=== PATIENT | male | born 1980 | race Caucasian/White ===

== ENCOUNTER 2023-06-19 23:48 | Inpatient (IN) | payer SELFPAY ==
[2023-06-20] MEDS ORDERED: LIDOCAINE 1%/EPI 1:100000 (50 ML MULTI DOSE VIAL) ONE (00:46)
[2023-06-20] MEDS ORDERED: SULFAMETHOXAZOLE/TRIMETHOPRIM 800MG/160MG D.S. TABLET PO ONE (00:47)
[2023-06-20] MEDS ORDERED: morphine CARPU-JECT 4 MG/1 ML DISP.SYRIN IVPUSH ONE (01:31)
[2023-06-20 01:34] LABS: BASO % 0.8 % (0-2.0); EOS % 2.6 % (0-4.5); HEMATOCRIT 41.5 % (35.4-49); HEMOGLOBIN 14.3 GM/dL (11.7-16.9); LYMPH % 28.1 % (8-40); MCH 30.5 pg (25.7-33.7); MCHC 34.5 g/dl (32.0-35.9); MEAN CELL VOLUME 88.4 fl (80-96); MEAN PLT VOLUME 8.1 fl (7.5-11.1); MONO % 7.2 % (3.8-10.2); NEUT % 61.3 % (42.8-82.8); PLATELET COUNT 279 10^3/uL (134-434); RDW 13.3 % (11.9-15.9); WHITE BLOOD COUNT 8.8 K/mm3 (4.0-10.0)
[2023-06-20 01:41] LABS: INR 1.03 (0.83-1.09)
[2023-06-20] MEDS ORDERED: LIDOCAINE HCL 1%, 10 MG/ML (50 mL VIAL) SQ ONE (01:45)
[2023-06-20] MEDS ORDERED: DALBAVANCIN HCL 1,500 MG in DEXTROSE 5%-WATER - 500 ML IVPB ONE (02:00)
[2023-06-20 02:02] LABS: CHLORIDE 106 mmol/L (98-107); SODIUM 138 mmol/L (136-145)
[2023-06-20 02:04] LABS: CALCIUM 8.6 mg/dL (8.5-10.1); CO2 29 mmol/L (21-32); GLUCOSE,RANDOM 93 mg/dL (74-106)
[2023-06-20 02:05] LABS: BLOOD UREA NITROGEN 11.3 mg/dL (7-18)
[2023-06-20 02:09] LABS: BILIRUBIN,TOTAL 0.3 mg/dL (0.2-1); TOT PROT 8.4 g/dl (6.4-8.2)
[2023-06-20 02:10] LABS: ALK PHOS 54 U/L (45-117)
[2023-06-20 02:14] LABS: ANION GAP 2 MMOL/L (8-16); POTASSIUM 8.4 mmol/L (3.5-5.1); SGOT/AST 139 U/L (15-37); SGPT/ALT 96 U/L (13-61)
[2023-06-20 03:18] LABS: BASO % 0.3 % (0-2.0); EOS % 2.9 % (0-4.5); HEMATOCRIT 40.8 % (35.4-49); HEMOGLOBIN 13.8 GM/dL (11.7-16.9); LYMPH % 28.1 % (8-40); MCHC 33.9 g/dl (32.0-35.9); MEAN CELL VOLUME 88.7 fl (80-96); MONO % 7.8 % (3.8-10.2); NEUT % 60.9 % (42.8-82.8); PLATELET COUNT 281 10^3/uL (134-434); RBC 4.61 M/mm3 (4.00-5.60); RDW 13.6 % (11.9-15.9)
[2023-06-20] MEDS ORDERED: KETOROLAC TROMETHAMINE 30 MG/1 ML VIAL IM ONE (04:15)
[2023-06-20] MEDS ORDERED: MELATONIN 5 MG TABLETS PO ONE (04:16)
[2023-06-20] MEDS: SODIUM CHLORIDE 1,000 ML IV SCH ×2 (06:17→20:00)
[2023-06-20 06:55] LABS: POTASSIUM 3.8 mmol/L (3.5-5.1)
[2023-06-20 06:56] LABS: CALCIUM 8.4 mg/dL (8.5-10.1)
[2023-06-20 06:57] LABS: ALBUMIN 3.2 g/dl (3.4-5.0)
[2023-06-20 07:00] LABS: CREATININE 0.9 mg/dL (0.55-1.3)
[2023-06-20 07:02] LABS: BILIRUBIN,TOTAL 0.3 mg/dL (0.2-1); TOT PROT 7.4 g/dl (6.4-8.2)
[2023-06-20] MEDS ORDERED: ENOXAPARIN NA (PORCINE) 40 MG/0.4 ML DISP.SYRIN SQ SCH (10:00)
[2023-06-20 14:39] VITALS: BMI 38.9
[2023-06-21 09:54] LABS: HEMOGLOBIN 14.8 GM/dL (11.7-16.9); MEAN CELL VOLUME 90.8 fl (80-96); MEAN PLT VOLUME 8.6 fl (7.5-11.1); PLATELET COUNT 294 10^3/uL (134-434); RBC 4.95 M/mm3 (4.00-5.60); RDW 13.2 % (11.9-15.9); WHITE BLOOD COUNT 7.2 K/mm3 (4.0-10.0)
[2023-06-21 10:00] LABS: INR 0.99 (0.83-1.09); PROTHROMBIN TIME (PATIENT) 11.5 SEC (9.7-13.0)
[2023-06-21 10:03] LABS: ACTIVATED PTT 33.2 SECONDS (25.2-36.5)
[2023-06-21] MEDS: SODIUM CHLORIDE 1,000 ML IV SCH (10:17)
[2023-06-21 10:20] LABS: POTASSIUM 4.6 mmol/L (3.5-5.1)
[2023-06-21 10:23] LABS: CALCIUM 8.9 mg/dL (8.5-10.1)
[2023-06-21 10:24] LABS: ALBUMIN 3.2 g/dl (3.4-5.0); BLOOD UREA NITROGEN 7.5 mg/dL (7-18); MAGNESIUM 1.9 mg/dL (1.8-2.4)
[2023-06-21 10:27] LABS: CREATININE 0.9 mg/dL (0.55-1.3); PHOSPHOROUS 3.2 mg/dL (2.5-4.9)
[2023-06-21 10:28] LABS: TOT PROT 7.6 g/dl (6.4-8.2)
[2023-06-21 10:44] LABS: BILIRUBIN,TOTAL 0.3 mg/dL (0.2-1)
[2023-06-21 15:23] VITALS: PULSE 73; RESP 18; TEMP 98
[2023-06-21 16:46] VITALS: BP 103/68
== END 2023-06-21 16:35 | disposition home or self-care (01) | DRG 383 ==
LOC: JER 23:48 → UNDOADMOB 06-20 03:18 → OBSVTOIN 06-20 03:18 → INTOOBSV 06-20 03:18 → JERBED 06-20 03:18 → OBSVTOIN 06-20 04:01 → J5S 06-20 14:01
PROVIDERS: ADMIT Internal Medicine; ATTEND Internal Medicine
PROC: 0X950ZZ Drainage of Left Axilla, Open Approach (ICD-10-PCS; principal; 2023-06-20)
DX: L02.412 Cutaneous abscess of left axilla (principal); L03.112 Cellulitis of left axilla; E66.9 Obesity, unspecified; Z68.38 Body mass index [BMI] 38.0-38.9, adult; R74.01 Elevation of levels of liver transaminase levels; B95.7 Other staphylococcus as the cause of diseases classified elsewhere
CPT/HCPCS: 36415; 71260-TC; 80053; 83735; 84100; 85025; 85027; 85610; 85730; 87070; 87205; 93005; 93010; 99285-25; J0875